=== PATIENT | male | born 1955 | race African-American/Black ===

== ENCOUNTER 2018-07-14 11:52 | Inpatient (IN) | payer MEDICAID ==
[~2018-07-14] VITALS: Ht 182.9 cm; Wt 72.6 kg
[2018-07-14] MEDS ORDERED: QUET25TA PO (11:56)
[2018-07-14] MEDS ORDERED: HYDR12.529 PO (11:56)
[2018-07-14] MEDS ORDERED: ONDANSETRON HCL 4MG/2ML INJ IV STA (18:02)
[2018-07-14] MEDS ORDERED: SODIUM CHLORIDE 0.9% 1,000 ML IV ONE (18:02)
[2018-07-14] MEDS ORDERED: MORPHINE SULFATE 4 MG/ML CPJ (NOT FOR IM USE) IV STA (18:02)
[2018-07-14] MEDS ORDERED: FAMOTIDINE 20MG/2ML VIAL IV STA (18:02)
[2018-07-14 18:27] LABS: BASOPHILS % 0.6 % (0.0-2.0); EOSINOPHILS % 0.3 % (0.0-5.0); HEMATOCRIT. 45.8 % (42.0-52.0); HEMOGLOBIN. 15.2 g/dL (14.0-18.0); LYMPHOCYTES % 13.2 % (20.0-50.0); MEAN CORPUSCULAR HEMOGLOBIN 28.7 pg (28.0-32.0); MEAN CORPUSCULAR VOLUME 86.3 fL (80.0-94.0); MEAN PLATELET VOLUME 8.4 fl (7.4-10.4); NEUTROPHILS % 76.9 % (40.0-76.0); PLATELET 320 x1000/uL (130-400); RED CELL DISTRIBUTION WIDTH 15.3 % (11.6-14.6)
[2018-07-14 18:29] LABS: CHLORIDE 88 mEq/L (98-107)
[2018-07-14] MEDS ORDERED: ENALAPRIL 2.5MG/2ML VIAL 2ML IV ONE (18:30)
[2018-07-14 18:31] LABS: INR 1.1; PARTIAL THROMBOPLASTIN TIME 28.9 sec (23.4-31.0); PROTHROMBIN TIME 10.8 sec (9.1-11.1)
[2018-07-14 18:35] LABS: ETHANOL BLOOD < 10 mg/dL
[2018-07-14 20:08] LABS: CLARITY URINE CLEAR (CLEAR); COLOR URINE YELLOW (YELLOW); KETONES URINE 1+ (NEGATIVE); LEUKOCYTE ESTERASE URINE NEGATIVE (NEGATIVE); NITRITE URINE NEGATIVE (NEGATIVE); OCCULT BLOOD URINE NEGATIVE (NEGATIVE); PROTEIN URINE 1+ (NEGATIVE); SPECIFIC GRAVITY URINE 1.015 (1.005-1.030)
[2018-07-14 20:21] LABS: *AMPHETAMINES SCREEN URINE NEGATIVE (NEGATIVE); *BARBITURATES SCREEN URINE NEGATIVE (NEGATIVE); *BENZODIAZEPINES SCREEN URINE NEGATIVE (NEGATIVE); *COCAINE SCREEN URINE NEGATIVE (NEGATIVE)
[2018-07-14 20:22] LABS: CANNABINOID URINE SCREEN PRESUMTIVE POSITIVE (NEGATIVE); METHADONE URINE SCREEN NEGATIVE (NEGATIVE); OPIATES URINE SCREEN PRESUMTIVE POSITIVE (NEGATIVE); PHENCYCLIDINE URINE SCREEN NEGATIVE (NEGATIVE)
[2018-07-14 23:47] VITALS: BP 152/101
[2018-07-15] VITALS: BP 160/86
[2018-07-15 04:00] VITALS: BP 153/79
[2018-07-15 08:00] VITALS: BP 140/72
[2018-07-15] MEDS ORDERED: ACETAMINOPHEN 325MG TABLET PO PRN (08:15)
[2018-07-15] MEDS ORDERED: IPRATROPIUM/ALBUTEROL 0.5-3(2.5)MG/3ML NEB INH PRN (08:15)
[2018-07-15] MEDS ORDERED: ONDANSETRON HCL 4MG/2ML INJ IV PRN (08:15)
[2018-07-15] MEDS ORDERED: CLONIDINE 0.1MG TABLET PO PRN (08:15)
[2018-07-15] MEDS ORDERED: DEXTROSE 50% WATER 50ML SYRINGE IV PRN (08:30)
[2018-07-15] MEDS: SODIUM CHLORIDE 0.9% 1,000 ML IV SCH ×2 (10:00→20:41)
[2018-07-15 10:59] LABS: CHLORIDE 93 mEq/L (98-107)
[2018-07-15] MEDS: HYDROCHLOROTHIAZIDE 12.5MG CAPSULE PO SCH (12:12)
[2018-07-15] MEDS: HYDROMORPHONE HCL/PF 2MG/ML CPJ IV PRN ×2 (12:12→17:51)
[2018-07-15] MEDS: QUETIAPINE FUMARATE 25MG TABLET PO SCH (12:12)
[2018-07-15] MEDS: INSULIN LISPRO 100 UNITS/ML SUBCUT SCH ×3 (12:15→20:45)
[2018-07-15] MEDS: BLOOD SUGAR DIAGNOSTIC STRIP TEST SCH ×3 (12:39→20:45)
[2018-07-15 16:00] VITALS: BP 167/84
[2018-07-15 17:17] LABS: BASOPHILS % 0.9 % (0.0-2.0); EOSINOPHILS % 0.5 % (0.0-5.0); HEMATOCRIT. 40.2 % (42.0-52.0); HEMOGLOBIN. 13.5 g/dL (14.0-18.0); LYMPHOCYTES % 25.4 % (20.0-50.0); MEAN CORPUSCULAR HEMOGLOBIN 29.1 pg (28.0-32.0); MEAN CORPUSCULAR VOLUME 86.3 fL (80.0-94.0); MEAN PLATELET VOLUME 8.2 fl (7.4-10.4); MONOCYTES % 13.6 % (2.0-8.0); NEUTROPHILS % 59.6 % (40.0-76.0); PLATELET 267 x1000/uL (130-400); RED BLOOD CELL COUNT 4.66 mill/uL (4.7-6.1); RED CELL DISTRIBUTION WIDTH 15.2 % (11.6-14.6)
[2018-07-15] MEDS: PANTOPRAZOLE SODIUM 40 MG/VIAL IV SCH (17:50)
[2018-07-15 20:31] VITALS: BP 136/83
[2018-07-16] LABS: HEMATOCRIT 40.7 % (42.0-52.0); HEMOGLOBIN 13.5 g/dL (14.0-18.0)
[2018-07-16 00:43] VITALS: BP 143/81
[2018-07-16 02:06] LABS: HEMOGLOBIN 13.8 g/dL (14.0-18.0)
[2018-07-16 04:00] VITALS: BP 139/78
[2018-07-16] MEDS: SODIUM CHLORIDE 0.9% 1,000 ML IV SCH ×3 (04:56→20:26)
[2018-07-16] MEDS: BLOOD SUGAR DIAGNOSTIC STRIP TEST SCH ×4 (06:04→21:27)
[2018-07-16] MEDS: INSULIN LISPRO 100 UNITS/ML SUBCUT SCH ×4 (06:04→21:00)
[2018-07-16] MEDS: HYDROMORPHONE HCL/PF 2MG/ML CPJ IV PRN ×3 (06:10→20:26)
[2018-07-16 07:33] LABS: HEMATOCRIT. 40.6 % (42.0-52.0); HEMOGLOBIN. 13.3 g/dL (14.0-18.0); MEAN CORPUSCULAR HEMOGLOBIN 28.7 pg (28.0-32.0); MEAN CORPUSCULAR VOLUME 87.3 fL (80.0-94.0); MEAN PLATELET VOLUME 8.2 fl (7.4-10.4); PLATELET 268 x1000/uL (130-400); RED BLOOD CELL COUNT 4.65 mill/uL (4.7-6.1); RED CELL DISTRIBUTION WIDTH 15.3 % (11.6-14.6)
[2018-07-16 07:36] LABS: INR 1.1; PARTIAL THROMBOPLASTIN TIME 28.8 sec (23.4-31.0); PROTHROMBIN TIME 11.2 sec (9.1-11.1)
[2018-07-16 07:48] LABS: TOTAL IRON BINDING CAPACITY 254 ug/dL (250-450)
[2018-07-16 08:21] LABS: VITAMIN B12 SERUM 630 pg/mL (211-911)
[2018-07-16 08:23] LABS: CHLORIDE 96 mEq/L (98-107)
[2018-07-16 08:26] VITALS: BP 142/85
[2018-07-16] MEDS: DOCUSATE SODIUM 250MG CAPSULE PO SCH (08:41)
[2018-07-16] MEDS: PANTOPRAZOLE SODIUM 40 MG/VIAL IV SCH ×2 (08:41→18:09)
[2018-07-16] MEDS: QUETIAPINE FUMARATE 25MG TABLET PO SCH (08:41)
[2018-07-16] MEDS: HYDROCHLOROTHIAZIDE 12.5MG CAPSULE PO SCH (08:41)
[2018-07-16] MEDS ORDERED: POTASSIUM CHLORIDE 20MEQ TABLET SR PO NR (10:30)
[2018-07-16 12:00] VITALS: BP 137/80
[2018-07-16 12:20] LABS: FERRITIN 132 ng/mL (22-322)
[2018-07-16 13:50] LABS: ATYPICAL LYMPHOCYTES 1
[2018-07-16 13:52] LABS: PLATELET ESTIMATE NORMAL
[2018-07-16 16:00] VITALS: BP 157/74
[2018-07-16 20:00] VITALS: BP 145/82
[2018-07-17] VITALS: BP 145/88
[2018-07-17] MEDS: HYDROMORPHONE HCL/PF 2MG/ML CPJ IV PRN (02:18)
[2018-07-17] MEDS: SODIUM CHLORIDE 0.9% 1,000 ML IV SCH ×3 (03:24→15:51)
[2018-07-17 04:00] VITALS: BP 150/90
[2018-07-17 06:32] LABS: BASOPHILS % 0.8 % (0.0-2.0); EOSINOPHILS % 1.7 % (0.0-5.0); HEMATOCRIT. 38.7 % (42.0-52.0); HEMOGLOBIN. 12.9 g/dL (14.0-18.0); LYMPHOCYTES % 27.6 % (20.0-50.0); MEAN CORPUSCULAR HEMOGLOBIN 28.9 pg (28.0-32.0); MEAN CORPUSCULAR VOLUME 86.7 fL (80.0-94.0); MEAN PLATELET VOLUME 8.5 fl (7.4-10.4); MONOCYTES % 14.5 % (2.0-8.0); NEUTROPHILS % 55.4 % (40.0-76.0); PLATELET 283 x1000/uL (130-400); RED BLOOD CELL COUNT 4.46 mill/uL (4.7-6.1); RED CELL DISTRIBUTION WIDTH 14.9 % (11.6-14.6)
[2018-07-17] MEDS: BLOOD SUGAR DIAGNOSTIC STRIP TEST SCH ×4 (06:37→20:41)
[2018-07-17] MEDS: INSULIN LISPRO 100 UNITS/ML SUBCUT SCH ×4 (06:38→20:41)
[2018-07-17 06:53] LABS: CHLORIDE 95 mEq/L (98-107)
[2018-07-17 08:00] VITALS: BP 162/79
[2018-07-17 09:09] LABS: FOLATE HEMATOCRIT 38.1 % (37.5-51.0)
[2018-07-17] MEDS: QUETIAPINE FUMARATE 25MG TABLET PO SCH (11:00)
[2018-07-17] MEDS: HYDROCHLOROTHIAZIDE 12.5MG CAPSULE PO SCH (11:00)
[2018-07-17] MEDS: PANTOPRAZOLE SODIUM 40 MG/VIAL IV SCH (11:00)
[2018-07-17] MEDS: DOCUSATE SODIUM 250MG CAPSULE PO SCH (11:00)
[2018-07-17 12:00] VITALS: BP 114/96
[2018-07-17] MEDS: POTASSIUM CHLORIDE 20MEQ TABLET SR PO SCH (15:58)
[2018-07-17] MEDS: OMEPRAZOLE 20MG CAPSULE EXTENDED RELEASE PO SCH (15:59)
[2018-07-17 16:00] VITALS: BP 167/93
[2018-07-17 19:11] LABS: FOLATE HEMOLYSATE 577.9 ng/mL (Not Estab.); FOLATE RBC 1517 ng/mL (>498)
[2018-07-17 20:00] VITALS: BP 157/86
[2018-07-17] MEDS ORDERED: DIPHENHYDRAMINE 50MG CAPSULE PO SCH (21:00)
[2018-07-18] VITALS: BP 146/74
[2018-07-18 04:00] VITALS: BP 118/85
[2018-07-18] MEDS: HYDROMORPHONE HCL/PF 2MG/ML CPJ IV PRN (05:12)
[2018-07-18] MEDS: OMEPRAZOLE 20MG CAPSULE EXTENDED RELEASE PO SCH (06:12)
[2018-07-18] MEDS: INSULIN LISPRO 100 UNITS/ML SUBCUT SCH ×2 (06:12→11:46)
[2018-07-18] MEDS: BLOOD SUGAR DIAGNOSTIC STRIP TEST SCH ×2 (06:12→11:46)
[2018-07-18 06:32] LABS: HEMATOCRIT. 38.8 % (42.0-52.0); MEAN CORPUSCULAR HEMOGLOBIN 28.8 pg (28.0-32.0); MEAN CORPUSCULAR VOLUME 85.9 fL (80.0-94.0); MEAN PLATELET VOLUME 8.1 fl (7.4-10.4); PLATELET 277 x1000/uL (130-400); RED BLOOD CELL COUNT 4.52 mill/uL (4.7-6.1); RED CELL DISTRIBUTION WIDTH 15.3 % (11.6-14.6)
[2018-07-18 07:15] LABS: CHLORIDE 93 mEq/L (98-107)
[2018-07-18 08:00] VITALS: BP 160/97
[2018-07-18] MEDS: DOCUSATE SODIUM 250MG CAPSULE PO SCH (08:03)
[2018-07-18] MEDS: QUETIAPINE FUMARATE 25MG TABLET PO SCH (08:03)
[2018-07-18] MEDS: POTASSIUM CHLORIDE 20MEQ TABLET SR PO SCH (08:03)
[2018-07-18 09:05] LABS: PHOSPHORUS 2.4 mg/dL (2.5-4.9)
[2018-07-18 12:00] VITALS: BP 136/81
[2018-07-18 13:12] VITALS: BP 136/81
[2018-07-18 14:34] LABS: PLATELET ESTIMATE NORMAL
== END 2018-07-18 12:20 | disposition home or self-care (01) | DRG 241 ==
LOC: ER 11:52 → 5WST 19:08 → EDBEDREQTM 19:11 → EDBEDREQ 19:11 → ENRESERV 20:51 → 5WST 07-17 15:15
PROVIDERS: ADMIT Internal Medicine; ATTEND Internal Medicine
DX: K29.70 Gastritis, unspecified, without bleeding (principal); E11.22 Type 2 diabetes mellitus with diabetic chronic kidney disease; E11.40 Type 2 diabetes mellitus with diabetic neuropathy, unspecified; E87.1 Hypo-osmolality and hyponatremia; R65.10 Systemic inflammatory response syndrome (SIRS) of non-infectious origin without acute organ dysfunction; K70.30 Alcoholic cirrhosis of liver without ascites; K21.9 Gastro-esophageal reflux disease without esophagitis; E87.6 Hypokalemia; F12.90 Cannabis use, unspecified, uncomplicated; D64.9 Anemia, unspecified; F10.10 Alcohol abuse, uncomplicated; I12.9 Hypertensive chronic kidney disease with stage 1 through stage 4 chronic kidney disease, or unspecified chronic kidney disease; F17.210 Nicotine dependence, cigarettes, uncomplicated; N18.1 Chronic kidney disease, stage 1; Z79.899 Other long term (current) drug therapy; Z82.49 Family history of ischemic heart disease and other diseases of the circulatory system
CPT/HCPCS: 36415; 71045; 76705; 80048; 80076; 80305; 82270; 82533; 82607; 82728; 82747; 82962; 83540; 83550; 83735; 83935; 84100; 84443; 84484; 85014; 85018; 93005; 96361; 96374; 96375; 99285; C9113; G0482; J1170; J2270; J2405; J3490; J7030; J7042; Q0163